=== PATIENT | female | born 1990 | race African-American/Black ===

== ENCOUNTER 2022-12-08 18:40 | Emergency (ER) | payer OTHER ==
[~2022-12-08] VITALS: Ht 160 cm; Wt 67.6 kg
[2022-12-08] MEDS ORDERED: KETOROLAC TROMETHAMINE 60 MG/2 ML VIAL IM ONE (19:15)
[2022-12-08] MEDS ORDERED: METHOCARBAMOL750 MG PO (20:02)
[2022-12-08] MEDS ORDERED: IBUPROFEN600 MG PO (20:02)
[2022-12-08 20:27] VITALS: BP 129/86; PULSE 98; RESP 18; TEMP 97.9; O2SAT 96
== END 2022-12-08 20:27 | disposition home or self-care (01) ==
LOC: FSED 18:58
DX: S00.83XA Contusion of other part of head, initial encounter (principal); R51.9 Headache, unspecified; M25.512 Pain in left shoulder; M25.561 Pain in right knee; V43.52XA Car driver injured in collision with other type car in traffic accident, initial encounter; Y92.488 Other paved roadways as the place of occurrence of the external cause
CPT/HCPCS: 72040; 73030; 73560; 96372; 99283; J1885